=== PATIENT | female | born 1990 | race Asian ===

== ENCOUNTER 2016-12-28 08:51 | Emergency (ER) | payer OTHER ==
[2016-12-28 10:47] LABS: microscopic required? YES; urine erythrocyte 3+ (NEGATIVE)
[2016-12-28 10:58] LABS: BASOPHIL % 0.5 % (0-2); PLATELET COUNT 267 x10^3mcL (130-400); RED CELL DISTRIBUTION WIDTH 14.1 % (11.5-14.5)
[2016-12-28 11:10] LABS: CALCIUM 8.9 mg/dL (8.5-10.1); CHLORIDE SERUM 105 mmol/L (98-107); CREATININE SERUM 0.8 mg/dL (0.6-1.0); GFR1 > 60 mL/min; GLUCOSE SERUM 93 mg/dL (74-106); POTASSIUM SERUM 4.5 mmol/L (3.5-5.1); SODIUM SERUM 139 mmol/L (136-145)
[2016-12-28 11:14] LABS: ALBUMIN 3.7 g/dL (3.4-5.0); ALKALINE PHOSPHATASE 47 U/L (46-116); ALT/SGPT 18 U/L (14-59); AST/SGOT 18 U/L (15-37); BILIRUBIN TOTAL 0.83 mg/dL (0.20-1.00); TOTAL PROTEIN, SERUM 7.2 g/dL (6.4-8.2)
[2016-12-28 13:56] VITALS: BP 96/61
== END 2016-12-28 13:56 | disposition home or self-care (01) ==
LOC: ED 08:51
PROVIDERS: Emergency Medicine
DX: R22.0 Localized swelling, mass and lump, head (principal); T49.8X5A Adverse effect of other topical agents, initial encounter; Y92.89 Other specified places as the place of occurrence of the external cause; Z91.040 Latex allergy status
CPT/HCPCS: J1200; J2930; J3490; Q0092; Q9967